=== PATIENT | female | born 1995 | race Caucasian/White ===

== ENCOUNTER 2025-03-01 21:07 | Emergency (ER) | payer MEDICAID, OTHER | END 2025-03-01 22:19 | disposition home or self-care (01) | LOC: ERS 21:07 → EDBD 21:07 → ERS 22:19 | DX: O99.891 Other specified diseases and conditions complicating pregnancy (principal); N39.3 Stress incontinence (female) (male); Z3A.24 24 weeks gestation of pregnancy | CPT/HCPCS: 99283 ==